=== PATIENT | female | born 1995 | race Caucasian/White ===

== ENCOUNTER → 2023-03-10 | Day surgery (SDC) | payer SELFPAY ==
[~2023-03-10] MED LIST: Rabies Vaccine Human 2.5 UNITS VIAL ONE
== END ==
LOC: ER/OP 05:37 → ERS 05:37 → ER/OP 05:37 → EDSTATUS 09:34
PROVIDERS: ATTEND Radiology Vascular & Interventional Radiology
DX: Z23 Encounter for immunization (principal)
CPT/HCPCS: 90675

== ENCOUNTER 2023-03-14 10:28 | Emergency (ER) | payer OTHER, SELFPAY | END 2023-03-14 11:15 | disposition home or self-care (01) | LOC: ERS 10:28 | DX: Z23 Encounter for immunization (principal); F17.210 Nicotine dependence, cigarettes, uncomplicated | CPT/HCPCS: 90471; 90675 ==

== ENCOUNTER 2024-11-30 14:08 | Emergency (ER) | payer OTHER, SELFPAY ==
[~2024-11-30 14:08] MED LIST changes: +Iopamidol-370 76% 500 ML MDV (1 ML CHARGE) ONE; -Rabies Vaccine Human 2.5 UNITS VIAL ONE
[2024-11-30 15:51] LABS: #Basophils 0.05 10x3/uL (0.0-0.2); #Eosinophils 0.20 10x3/uL (0.0-0.7); #Monocytes 0.43 10x3/uL (0.11-0.59); #Neutrophils 3.86 10x3/uL (1.40-6.50); %Basophils 0.9 % (0.0-1.0); %Eosinophils 3.4 % (0.0-10.0); %Lymphocytes 21.7 % (21.0-51.0); %Monocytes 7.4 % (0.0-10.0); %Neutrophils 66.4 % (42.0-75.0); Hematocrit 37.0 % (36.0-47.0); Hemoglobin 12.6 g/dL (12.0-16.0); Mean Corpuscular Hemoglobin 28.4 pg (27.0-31.0); Mean Corpuscular Volume 83.3 fL (78.0-98.0); Platelet Count 227 10x3/uL (130-400); Red Blood Cell (RBC) Count 4.44 mill/uL (4.20-5.40); White Blood Cell (WBC) Count 5.81 10x3/uL (4.8-10.8)
[2024-11-30 15:58] LABS: Bacteria/HPF None Seen HPF (None Seen); CAUTI Indications for Culture Dysuria,urgency,freq; Glucose, Urine (Dipstick) Normal (Negative); Leukocyte Negative Leu/uL (Negative); Protein, Urine (Dipstick) Negative (Neg-Trace); RBC/HPF 0-3 HPF (0-3); Specific Gravity, Urine 1.023 (1.002-1.036); WBC/HPF 0-3 HPF (0-3)
[2024-11-30 16:00] LABS: Urine Culture Reflex No No
[2024-11-30 16:13] LABS: BHCG - Serum Negative (NEGATIVE); Pregs Control Background? CLEAR/WHITE (CLR/WHITE); Pregs Control Bar Appear? YES (CONTROL BAR)
[2024-11-30 16:19] LABS: ALT (SGPT) 12 U/L (Less than 34); AST (SGOT) 24 U/L (11-34); Albumin 4.3 g/dL (3.1-4.5); Alkaline Phosphatase 65 U/L (40-110); Anion Gap 13 mmol/L (10-20); BUN (Urea Nitrogen) 15 mg/dL (7.0-18.7); Bilirubin, Total 0.4 mg/dL (0.3-1.2); Calc. Creatinine Clearance 0 mL/min (70-130); Calcium 9.5 mg/dL (7.8-10.44); Carbon Dioxide 25 mmol/L (22-29); Chloride 105 mmol/L (98-107); Globulin 3.4 g/dL (2.4-3.5); Glucose 86 mg/dL (70-105); Lipase 39 U/L (8-78); Potassium 4.0 mmol/L (3.5-5.1); Sodium 139 mmol/L (136-145)
== END 2024-11-30 18:30 | disposition home or self-care (01) ==
LOC: ERS 14:08
DX: S39.011A Strain of muscle, fascia and tendon of abdomen, initial encounter (principal); F17.290 Nicotine dependence, other tobacco product, uncomplicated; X50.3XXA Overexertion from repetitive movements, initial encounter
CPT/HCPCS: 74177; 80053; 81001; 83690; 84703; 85025